=== PATIENT | female | born 1945 | race Caucasian/White ===

== ENCOUNTER → 2017-01-12 | Outpatient (CLI) | payer MEDICARE, OTHER ==
[~2017-01-12] MED LIST: ASPIRIN81 M2 PO; CALCIUM + D 6001 TA1 PO; CITRACAL + D CA1 TA1 PO; METOPROLOL TAR25 MG PO; NON-ASPIRIN EX500 M2 PO; TOPROL XL PO
--- NOTE | ~2017-01-12 | MY11 ---
[facility] A Service of [facility] RADIOLOGY TEXT RESULTS PATIENT: MERRILL DORADO LOCATION: [facility] : 47 UNIT #: [id number] AGE: [address]: Sravani Valencia APRN SEX: F ORDER DR: [id number] [facility] [address] [place], [place] [address] [id number] O MR#: [id number] Acc #: [id number] NAME: MERRILL DORADO : 1945 SEX: F STUDY DATE/TIME: 01/12/2017 12:38 UNIT: [facility] ROOM: STUDY DESCRIPTION: MY Mammogram Screening Dig Branden Attending Physician: Sravani Valencia A.P.R.N. Referring Physician: Sravani Valencia A.P.R.N. Ordering Physician: Sravani Valencia A.P.R.N. Primary Care Physician: Sravani Valencia A.P.R.N. MEDICAL IMAGING REPORT This report is preliminary unless electronic signature is present EXAM Bilateral digital screening mammogram with CAD. INDICATIONS Routine screening. No current complaints. Family history of breast cancer in a sister. COMPARISON 01/10/16, 12/31/14, 12/08/13. TECHNIQUE MLO and CC digital views of each breast were obtained and reviewed with an FDA-approved CAD device. An exaggerated medial CC view of the right breast was also obtained. FINDINGS There are scattered fibroglandular densities including a small nodule in the anterior right breast about 2 cm behind the nipple. That nodule is unchanged from old studies dating back to at least 2013. It is about 8 mm in diameter. IMPRESSION No change. No evidence of malignancy. BIRADS category 2N. Patients over the age of 40 are entered into a reminder system with target due date for the next mammogram. A result letter will also be sent to the patient. BIRADS: 2 Benign findings. Dictated by... Urban Vallejo M.D. [facility] A Service [facility] RADIOLOGY TEXT RESULTS PATIENT: MERRILL DORADO LOCATION: [facility] : 47 UNIT #: [id number] AGE: [address]: Sravani Valencia APRN SEX: F ORDER DR: THIS IS AN ELECTRONICALLY VERIFIED REPORT Urban Vallejo M.D. at 01/13/2017 6:27 AM IVY/jorge TD: 01/12/2017 19:00 JOB #: [id number] MEDICAL IMAGING REPORT Page 1 of 1 COPY
== END | disposition home or self-care (01) ==
LOC: CWCC 12:12
DX: Z12.31 Encounter for screening mammogram for malignant neoplasm of breast (principal); Z80.3 Family history of malignant neoplasm of breast
CPT/HCPCS: G0202